=== PATIENT | female | born 1975 | race Caucasian/White ===

== ENCOUNTER 2017-01-18 16:26 | Outpatient (CLI) | payer OTHER ==
--- NOTE | 2017-01-20 17:04 | Mammography Report ---
DIGITAL SCREENING MAMMOGRAM: 01/18/2017 CLINICAL INDICATION: A 41-year-old with history of late childbearing for baseline. TECHNIQUE: Routine CC and MLO projections were obtained of the breasts. The breasts demonstrate heterogeneously dense fibroglandular parenchyma bilaterally. A few coarse, t ypically benign calcifications are present. No suspicious masses, clustered microcalcifications, or regions of architectural distortion are identified. IMPRESSION: BENIGN FINDINGS. RECOMMENDATION: ROUTINE ANNUAL SCREENING UNLESS OTHERWISE CLINICALLY INDICATED. BIRADS CATEGORY: 2, BENIGN FINDINGS. STANDARD QUALIFYING STATEMENTS 1. This examination was reviewed with the aid of Computed-Aided Detection (CAD). 2. A negative or benign imaging report should not delay biopsy if clinically suspicious findings are present. Consider surgical consultation if warranted. More than 5% of cancers are not identified b y imaging. 3. Dense breasts may obscure an underlying neoplasm. JOB #: [id number] EXT JOB #:[id number]
== END 2017-01-18 16:27 | disposition home or self-care (01) ==
LOC: DI 16:26
PROVIDERS: ATTEND Physician Assistant Medical
DX: Z12.31 Encounter for screening mammogram for malignant neoplasm of breast (principal)
CPT/HCPCS: 77067

== ENCOUNTER 2017-05-28 07:08 | Emergency (ER) | payer OTHER ==
[2017-05-28] MEDS ORDERED: DEXAMETHASONE 10 MG/ML VIAL PO STA (07:29)
--- NOTE | 2017-05-28 07:32 | ED Physician Documentation ---
PD HPI HEENT - Stated complaint Stated Complaint: THROAT PX/FEVER - Chief complaint Chief Complaint: Heent - History obtained from History obtained from: Patient - History of Present Illness Timing - onset: Last night Timing - duration: Hours Timing - details: Gradual onset, Still present Location: Throat Improves: Medication Worsens: Swalllowing Associated symptoms: Fever, Congestion, Headache, Cough Similar symptoms before: Diagnosis (strep) Recently seen: Not recently seen - Additional information Additional information: 41-year-old female has developed a sore throat headache and fever beginning last night. She has a child who was diagnosed with strep 5 days ago. She was not ill prior to last night. Review of Systems Constitutional: reports: Fever, Chills, Myalgias Eyes: denies: Decreased vision Ears: denies: Ear pain Nose: reports: Rhinorrhea / runny nose, Congestion Throat: reports: Sore throat Cardiac: denies: Chest pain / pressure, Palpitations Respiratory: reports: Cough. denies: Dyspnea GI: denies: Abdominal Pain, Nausea, Vomiting, Constipation, Diarrhea : denies: Dysuria, Frequency Skin: denies: Rash Musculoskeletal: denies: Neck pain, Back pain Neurologic: reports: Headache. 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 HEENT: Tonsil/Adenoidectomy - Present Medications Home Medications: Ambulatory Orders Medication Instructions Recorded Confirmed Amoxicillin 875 mg PO BID #20 tablet 05/28/17 - Allergies Allergies/Adverse Reactions: Allergies Allergy/AdvReac Type Severity Reaction Status Date / Time gluten Allergy Hives Verified 05/28/17 07:13 iodine Allergy Anaphylaxis Verified 05/28/17 07:13 shellfish derived Allergy Anaphylaxis Verified 05/28/17 07:13 - Social History Does the pt smoke?: No Smoking Status: Never smoker Does the pt drink ETOH?: No Does the pt have substance abuse?: No - Immunizations Immunizations are current?: Yes PD ED PE NORMAL - Vitals Vital signs reviewed: Yes (tachy and hypertensive ) - General General: Alert and oriented X 3, No acute distress, Well developed/nourished - HEENT HEENT: Atraumatic, PERRL, EOMI, Other (minimal inflamation in the right pharynx is with erythema no tonsils and mild exudate. Tongue is strawberry) - Neck Neck: Supple, no meningeal sign, No bony TTP - Cardiac Cardiac: RRR, No murmur - Respiratory Respiratory: No respiratory distress, Clear bilaterally - Abdomen Abdomen: Soft, Non tender - Back Back: No CVA TTP, No spinal TTP - Derm Derm: Normal color, Warm and dry, No rash - Extremities Extremities: No deformity, No edema - Neuro Neuro: No motor deficit, No sensory deficit Eye Opening: Spontaneous Motor: Obeys Commands Verbal: Oriented GCS Score: 15 - Psych Psych: Normal mood, Normal affect Results - Vitals Vitals: Vital Signs - 24 hr 05/28/17 07:12 Temperature 37.5 C Heart Rate 108 H Respiratory 20 Rate Blood Pressure 147/84 H O2 Saturation 98 Oxygen O2 Source Room air - Labs Labs: Laboratory Tests 05/28/17 07:30 Group A Strep Rapid POSITIVE H PD MEDICAL DECISION MAKING - ED course Complexity details: reviewed results, re-evaluated patient, considered differential, d/w patient ED course: 41-year-old female with exposure to strep has a sore throat headache she has minimal cough associated with the symptoms. She is administered dexamethasone 10 mg orally and rapid strep is obtained. Departure - Departure Disposition: 01 Home, Self Care Clinical Impression: Strep pharyngitis Condition: Stable Instructions: ED Strep Pharyngitis Conf Follow-Up: Felicia Langford PA-C [Primary Care Provider] - Prescriptions: Amoxicillin 875 mg PO BID #20 tablet
[2017-05-28] MEDS ORDERED: CHERRY SYRUP 10 ML UDC PO ONE (07:45)
[2017-05-28 08:11] VITALS: BP 127/78
== END 2017-05-28 08:11 | disposition home or self-care (01) ==
LOC: ED 07:08
DX: J02.0 Streptococcal pharyngitis (principal); J45.909 Unspecified asthma, uncomplicated
CPT/HCPCS: 87430; 99283; A9270

== ENCOUNTER 2017-12-13 13:03 | Outpatient (CLI) | payer OTHER ==
--- NOTE | 2017-12-13 16:37 | Ultrasound Report ---
Procedure Date: 12/13/2017 Accession Number: [id number] / [id number] Procedure: US - Pelvic w/Transvaginal CPT Code: FULL RESULT: EXAM: PELVIC ULTRASOUND EXAM DATE: 12/13/2017 02:54 PM. CLINICAL HISTORY: UTERINE FIBROIDS. COMPARISON: None. TECHNIQUE: Realtime transabdominal pelvic scan performed to identify the uterus and adnexa and as an overview of other pelvic structures, followed by transvaginal scan to provide greater detail of the uterus and adnexa, with static image documentation. FINDINGS: Uterus: 11.1 x 5.1 x 4.5 cm, volume 133.2 cc. Anteverted position. Normal overall size and echotexture. Masses: There is a small echogenic mass in the left anterior uterine body measuring 0.8 x 0.8 x 0.6 cm, compatible with an intramural fibroid. Endometrium: 10.3 mm. Normal. Cervix: Unremarkable. Right Ovary: 2.8 x 1.6 x 1.7 cm, volume 4.0 cc. Normal echotexture and blood flow. Left Ovary: 3.3 x 1.9 x 2.9 cm, volume 9.5 cc. Normal echotexture and blood flow. Free Fluid: None. Other: None. IMPRESSION: 1. Tiny intramural fibroid in the left anterior uterine body. 2. Otherwise unremarkable pelvic ultrasound. [facility]
== END 2017-12-13 13:04 | disposition home or self-care (01) ==
LOC: DI 13:03
PROVIDERS: ATTEND Physician Assistant Medical
DX: D25.1 Intramural leiomyoma of uterus (principal)
CPT/HCPCS: 76830; 76856